=== PATIENT | female | born 1955 | race Caucasian/White ===

== ENCOUNTER → 2023-08-13 12:59 | Outpatient (REF) | payer MEDICARE, BC, SELFPAY | LOC: SDSPAT 12:59 | PROVIDERS: ATTENDING PHYSICIAN Surgery; FAMILY PHYSICIAN Family Medicine; OTHER PHYSICIAN Internal Medicine | DX: K43.9 Ventral hernia without obstruction or gangrene (principal); K42.9 Umbilical hernia without obstruction or gangrene | CPT/HCPCS: 36415; 93005 ==

== ENCOUNTER 2023-08-26 11:07 | Emergency (ER) | payer MEDICARE, BC, SELFPAY ==
[2023-08-26 11:16] VITALS: BP 141/77
[2023-08-26] MEDS: NSS 1000 IV (13:05)
[2023-08-26 13:22] LABS: % Basophils 0.3 % (0-2); % Immature Granulocytes 0.3 % (0-0.5); % Lymphocytes 4.2 % (20.5-51.1); % Monocytes 1.6 % (1.7-9.3); % Neutrophils 93.6 % (42.2-75.2); Absolute Lymphocytes 0.5 10^3/uL (1.2-3.4); Absolute Monocytes 0.2 10^3/uL (0.1-0.6); Absolute Neutrophils 10.4 10^3/uL (1.4-6.5); Hematocrit 36.6 % (37.0-47.0); Hemoglobin 12.4 g/dL (12.0-16.0); Mean Corp Hgb Conc. 33.9 g/dL (33.0-37.0); Mean Corpuscular Hgb 30.3 pg (27.0-31.0); Mean Corpuscular Volume 89.5 fL (81.0-99.0); Mean Platelet Volume 10.4 fL (7.4-10.4); Nucleated Red Blood Cells % 0 %; Platelet Count 317 10^3/uL (130-400); Red Blood Cell Count 4.09 10^6/uL (4.20-5.40); Red Cell Dist. Width 12.7 % (11.5-14.5); White Blood Cell Count 11.1 10^3/uL (4.8-10.8)
[2023-08-26 13:33] LABS: Lactic Acid 1.6 mmol/L (0.7-2.0)
--- NOTE | 2023-08-26 13:33 | ED.GENMED ---
History of Present Illness
General
Chief Complaint: Abdominal Pain
Source: patient
Time Seen by Provider: 08/26/23 12:44
Travel History
Have you had any contact with someone who has COVID-19?: No
Do you have any symptoms of coronavirus? Fever > 100 degrees, chills, cough, shortness of breath, sore throat, loss of taste or smell, muscle aches, or headache?: No
History of Present Illness
History of Present Illness:
68-year-old female with past medical history of hyperlipidemia and hiatal hernia, scheduled to undergo a hernia repair tomorrow at this facility presenting to the emergency department for evaluation of left lower quadrant abdominal pain x 12 hours
accompanied with persistent nausea and bilious emesis today prompting her to come to the ER for further evaluation. Patient notes that at time of my exam her pain seemingly subsided as well as the nausea. She did not take anything for her symptoms
prior to arrival. She states this feels very different than her hernia symptoms. She denies any known sick contacts, recent travel or recent antibiotics. Patient does note a little over a week ago she lost her sense of taste and checked herself
for COVID twice which was negative and is not sure if this has anything to do with her symptoms today. Patient has no other concerns at this time.
Past History
Past History
ED Past Medical History: Hypercholesterolemia
ED Past Surgical History: Other (Patient has a history of tubal ligation and Lasik surgery)
Social History
Tobacco: Non-smoker
Alcohol: None
Drug: None
Personal:
Living: with family
Review of Systems
Review of Systems
All Other Systems: ROS reviewed and negative except as documented in HPI and ROS
Phy Exam
Physical Exam
Physical Exam:
GENERAL: Alert , in no apparent distress
EYE: clear conjunctiva b/l
HEAD: NCAT
ENT: o/p clr, mmm.
CARDIAC: Regular rate and rhythm .
LUNGS: Clear breath sounds bilaterally, no acute respiratory distress, no wheezes/rales/rhonchi
ABDOMEN: Soft, without focal tenderness, no r/g, no cvat, umbilical hernia palpated but there is no tenderness to this area. Normoactive bowel sounds
NEUROLOGICAL: Alert and oriented
SKIN: Warm and dry, skin intact.
MUSCULOSKELETAL: No edema, well perfused.
PSYCH: Normal and appropriate interaction.
Scores
Heart Failure Risk
Heart Failure Risk Score: Not Applicable
Heart Score for Chest Pain Patients
STEMI patient?: Not applicable
Withdrawal Assessment of Alcohol
Withdrawal Assessment Completed?: Not applicable
Course
Orders/Labs/Results
Orders:
Orders
08/26/23 12:59
CT Abd/pelvis W Iv Cont Urgent
Comment:
Reason For Exam: LLQ pain,vomiting,scheduled hernia repair tomorrow
08/26/23 13:04
Complete Blood Count/With Diff Urgent
Comprehensive Metabolic Panel Urgent
Lactic Acid Q4H
Comment: CANCEL 2nd LACTIC ACID IF 1st LACTIC ACID IS LESS THAN 2
Lipase Urgent
Urinalysis Reflex To Culture Urgent
Date Specimen was Collected: 08/26/23
Time Specimen was Collected: 12:52
Urine Microscopic Reflex Cult Urgent
Urine Culture Urgent
CARMEN Source: U
Specimen Description:
Date Specimen was Collected: 08/26/23
Time Specimen was Collected: 12:52
0.9% Sodium Chloride 1000 ml [Nss] 1,000 ml IV BOLUS
Abnormal Lab Results
08/26/23
13:04
WBC 11.1 H 10^3/uL
(4.8-10.8)
RBC 4.09 L 10^6/uL
(4.20-5.40)
Hct 36.6 L %
(37.0-47.0)
Absolute Neuts (auto) 10.4 H 10^3/uL
(1.4-6.5)
Absolute Lymphs (auto) 0.5 L 10^3/uL
(1.2-3.4)
Neutrophils % 93.6 H %
(42.2-75.2)
Lymphocytes % 4.2 L %
(20.5-51.1)
Monocytes % 1.6 L %
(1.7-9.3)
Glucose 130 H mg/dl
(70-99)
AST 39 H U/L
(14-36)
ALT 39 H U/L
(0-35)
Urine Ketones 3+ A
(Negative)
Ur Occult Blood Reflex 4+ A
(Negative)
Urine Nitrite (Reflex) Positive A
(Negative)
Urine Bilirubin 1+ A
(Negative)
Leukocyte Esterase Rfl 1+ A
(Negative)
Urine RBC >100 A /HPF
(0-2)
Urine WBC (Reflex) 11-15 A /HPF
(0-5)
Urine Bacteria (Reflex) Many A
(Negative)
Urine Albumin (Reflex) 2+ A
(Neg - Trace)
08/26/23 13:04
08/26/23 13:04
Vital Signs
Initial and Last Documented VS:
Initial Vital Signs
Temp Pulse Resp BP Pulse Ox
98.1 F 79 18 141/77 100
08/26/23 11:16 08/26/23 11:16 08/26/23 11:16 08/26/23 11:16 08/26/23 11:16
Last Documented Vital Signs
Temp Pulse Resp BP Pulse Ox
98.1 F 78 18 116/64 99
08/26/23 11:16 08/26/23 15:54 08/26/23 15:54 08/26/23 15:54 08/26/23 15:54
MDM/Problems Addressed
Differential Diagnosis Includes:
Diverticulitis, diverticulosis, renal/ureteral colic, gastroenteritis, urinary tract infection
MDM/Problems Addressed:
68-year-old female present emergency department for evaluation of left lower quadrant abdominal pain as well as nausea and vomiting that began this morning. Did not take anything for symptoms. Symptoms seem to be improved at time of my exam.
Minimal tenderness on exam. Patient has a scheduled for ventral hernia and umbilical hernia repair tomorrow. There are no clinical signs for an acute incarcerated/strangulated hernia. Possible diverticulitis versus kidney stone versus UTI.
Patient declining anything for symptoms at this time. Will check labs, urine and CT imaging.
*Radiology
Radiology exam reviewed: radiology read reviewed
*Pulse Oximetry
Patient hypoxic: no
*Critical Care Note
Total Time (30-74mins, 75-104mins- exclusive of procedures): Not Applicable
Data Reviewed
Review of Other/Old Records Reveals: Other
Source: patient and records
Patient Management
Discussion with other providers: [employer] Administrator
Escalation/DeEscalation of care consider admission/obs:
Patient CT scan showed 2 small calculi in the proximal segment of the left ureter which were partially obstructing with a mild degree of hydronephrosis. Due to patient's UTI I notified urology who believes patient can be discharged home on
medications and recommends Bactrim DS twice daily x 5 days, Flomax and NSAIDs for pain. I discussed the case with general surgery as well given her scheduled hernia repair tomorrow and they recommended that this procedure be delayed until patient's
UTI is adequately treated. I notified patient to contact Dr. Wisdom's office tomorrow to notify them. Dr. Pedersen from urology will be in contact with patient for follow-up visit as well. She is aware of return precautions for any fevers,
worsening pain, persistent vomiting or any other concerns she may have.
ED Attending Note
-
Portions of this chart may have been created with voice recognition software.� Occasional wrong word or��sound alike� substitutions may have occurred due to the inherent limitations of voice recognition software.
Discharge Plan
Departure
Patient Disposition: Home (Routine Discharge)
Date of Disposition: 08/26/23
Time of Disposition: 15:45
Patient with high blood pressure during this ER visit?: Yes
Discharge Problem:
Kidney stone on left side, Acute UTI
Instructions: Kidney Stones (DC)
Prescriptions:
New
sulfamethoxazole-trimethoprim [Bactrim DS] 800-160 mg tablet
1 tab PO BID 5 Days Qty: 10 0RF
tamsulosin [Flomax] 0.4 mg capsule
0.4 mg PO DAILY Qty: 10 0RF
naproxen 500 mg tablet
500 mg PO BID PRN (Reason: Pain) Qty: 15 0RF
ondansetron 4 mg Tablet,Disintegrating
4 mg PO TIDPRN PRN (Reason: nausea/vomiting) Qty: 8 0RF
No Action
atorvastatin 20 mg Tablet
20 mg PO QPM
calcium carbonate-vitamin D3 [Calcium 500 + D (D3)] 500 mg-3.125 mcg (125 unit) Tablet
1 tab PO DAILY
Multi-Vitamin
Referrals:
Issac Pedersen MD [Active] - (Urology - Call for appointment)
Ciro Wisdom MD [Active] - (Call to reschedule surgery)
Gael Dawn MD [Family Provider] -
Interventions
Interventions:
*Risk Screen - Suicide Last Done: 08/26/23 11:16
*General Assessment Last Done: 08/26/23 11:16
*Neglect/Abuse Screening Last Done: 08/26/23 11:16
ED- Fall Risk Assessment Last Done: 08/26/23 16:00
*ED COVID-19 Vaccine History Last Done: 08/26/23 12:25
*Nursing Disposition Last Done: 08/26/23 16:00
NL-Xcwieu-Naolmszsvj Assessment Last Done: 08/26/23 12:24
Discharge Date and Time
Discharge Date/Time: 08/26/23 16:00
[2023-08-26 13:35] LABS: ALT (SGPT) 39 U/L (0-35); AST (SGOT) 39 U/L (14-36); Albumin 4.4 g/dl (3.5-5.0); Alkaline Phosphatase 118 U/L (38-126); Blood Urea Nitrogen 16 mg/dl (7-17); Calcium 9.5 mg/dl (8.4-10.2); Carbon Dioxide 24 mmol/L (22-30); Chloride 107 mmol/L (98-107); Glucose 130 mg/dl (70-99); Lipase 160 U/L (23-300); Sodium 138 mmol/L (135-145); Total Bilirubin 0.7 mg/dl (0.2-1.3); Total Protein 6.8 g/dl (6.3-8.2); eGFR > 60.00
[2023-08-26 13:58] LABS: Urine Albumin 2+ (Neg - Trace); Urine Bilirubin 1+ (Negative); Urine Character Very Cloudy (Clear); Urine Color Amber; Urine Glucose Negative (Negative); Urine Ketone 3+ (Negative); Urine Leukocyte 1+ (Negative); Urine Nitrite Positive (Negative); Urine Occult Blood 4+ (Negative); Urine Specific Gravity 1.025 (<1.030); Urine Urobilinogen 1+ (Neg - 1+)
[2023-08-26 14:34] LABS: Urine Mucus Few; Urine Red Blood Cell >100 /HPF (0-2); Urine Squamous Cell 16-20 /LPF (Few)
[2023-08-26 14:35] LABS: Urine Bacteria Many (Negative)
[2023-08-26 15:54] VITALS: BP 116/64
== END 2023-08-26 16:00 | disposition home or self-care (01) ==
LOC: EMR 11:07
PROVIDERS: Physician Assistant Medical; EMERGENCY PHYSICIAN Emergency Medicine; FAMILY PHYSICIAN Internal Medicine
DX: N20.0 Calculus of kidney (principal); N39.0 Urinary tract infection, site not specified; E78.00 Pure hypercholesterolemia, unspecified; K44.9 Diaphragmatic hernia without obstruction or gangrene; Z98.51 Tubal ligation status
CPT/HCPCS: 99284; 96360; 74177; 80053; 81003; 81015; 83605; 83690; 85025; 87086; Q9967

== ENCOUNTER → 2023-08-27 06:21 | Day surgery (SDC) | payer MEDICARE, BC, SELFPAY ==
[2023-08-13 13:21] VITALS: BMI 28.1
== END ==
LOC: SDS 06:21
PROVIDERS: ATTENDING PHYSICIAN Surgery
DX: K43.9 Ventral hernia without obstruction or gangrene (principal); Z53.8 Procedure and treatment not carried out for other reasons
CPT/HCPCS: 49591

== ENCOUNTER → 2023-09-05 07:35 | Outpatient (REF) | payer MEDICARE, BC, SELFPAY | LOC: RAD 07:35 | PROVIDERS: ATTENDING PHYSICIAN Surgery; FAMILY PHYSICIAN Internal Medicine | DX: N13.2 Hydronephrosis with renal and ureteral calculous obstruction (principal) | CPT/HCPCS: 74018; 76775 ==

== ENCOUNTER 2023-09-10 06:50 | Day surgery (SDC) | payer MEDICARE, BC, SELFPAY ==
[2023-09-10] VITALS (10 sets, daily range): BP systolic 106–137; BP diastolic 58–115; BMI 27.2
[2023-09-10] MEDS: NORMOSOL-R 1000 IV (10:59)
[2023-09-10] MEDS: TYLENOL 1000 MG PO (10:59)
--- NOTE | 2023-09-10 14:58 | W.IMMPOSTOP ---
Surgical Immed Post Op Note
-
Primary Surgeon: Alyx
Assisting: Manny PHILIP
Pre-op Diagnosis: Incarcerated epigastric and umbilical hernias
Post-op Diagnosis: Same
Procedure Performed: Robot assisted laparoscopic repair of incarcerated epigastric and umbilical hernias
Anesthesia Type: GETA + TAP block
Specimen / Cultures: None
Estimated Blood Loss:5cc
Complications: None immediate
Operative Findings: 1cm x 1cm umbilical hernia - 6cm superior to this an epigastric defect 2cm x 1cm with incarcerated fat, [Total hernia size = 8cm]; 15cm x 11cm bard soft mesh
--- NOTE | 2023-09-10 15:00 | OR.RPT ---
Operative Report
Operative Report
Primary Surgeon: Alyx
Assisting: Manny PHILIP
Pre-op Diagnosis: Incarcerated epigastric and umbilical hernias
Post-op Diagnosis: Same
Procedure Performed: Robot assisted laparoscopic repair of incarcerated epigastric and umbilical hernias
Anesthesia Type: GETA + TAP block
Specimen / Cultures: None
Estimated Blood Loss:5cc
Complications: None immediate
Operative Findings: 1cm x 1cm umbilical hernia - 6cm superior to this an epigastric defect 2cm x 1cm with incarcerated fat, [Total hernia size = 8cm]; 15cm x 11cm bard soft mesh
Date of Surgery:� 09/10/23
Indications:� This 68F developed�a symptomatic incarcerated epigastric hernia. On imaging, an umbilical defect was also identified. Repair was thus indicated and laparoscopic approach was elected, she asked that we repair both defects today.
Description of procedure:� The patient was taken to the operating room and the correct site of surgery was verified. General anesthesia was induced and the patient was placed supine on the operating table with arms tucked.� The patient�s abdomen was
prepped and draped in standard sterile fashion. A time-out was completed verifying correct patient, procedure, site, positioning, and implants and special equipment prior to beginning this procedure. A stab incision was made in the left upper
quadrant, a Veress needle was inserted and proper position was confirmed by aspiration and saline drop test. Following this, pneumoperitoneum was created with insufflation of carbon dioxide to 12 mmHg. Then a 8mm robotic trocar was inserted at the
left anterior axillary line at the level of the umbilicus. A laparoscope was inserted and the area of initial trocar entry and Veress needle placement were both inspected and free of trauma. Two 8mm trocars were then placed a hand's breadth above
and below the initial trocar under direct visualization. The peritoneum was incised at the falciform ligament and a flap was developed in transverse and caudad directions using blunt and sharp dissection. The umbilical defect was identified and
measured 1cm x 1cm. The epigastric defect was identified and measured 2cm x 1cm. Fatty contents were manually reduced from the defect.� The defects were closed with 0 PDS stratafix suture.� An 11cm x 15cm bard soft mesh was passed through a trocar.
The mesh was moved into position to lay flat against the abdominal wall, centered longitudinally on the defect. The mesh was secured into place using 2-0 vicryl suture under the defect and at all four corners as well as fpc along each side.� A
2-0 monocryl stratafix was used to close the flap. A large central flap rent was closed with 2-0 monocryl stratafix suture. A 14g angiocath was used to decompress the preperitoneal space revealing good seal and mesh in good position without folding
or curling. A transversus abdominis plane block was performed under laparoscopic vision using decadron/marcaine. After ensuring adequate hemostasis, the trocars were removed and the pneumoperitoneum allowed to escape. The trocar incisions were
closed at the skin level using 4-0 monocryl and topical skin adhesive. Abdominal binder was placed. The patient tolerated the procedure well and was taken to the postanesthesia care unit in stable condition.
[2023-09-10] MEDS: DILAUDID 0.25 MG IV ×2 (15:10→15:26)
== END 2023-09-10 17:30 | disposition home or self-care (01) ==
LOC: SDS 06:50
PROVIDERS: ATTENDING PHYSICIAN Surgery
DX: K43.6 Other and unspecified ventral hernia with obstruction, without gangrene (principal)
CPT/HCPCS: 49594; C1781

== ENCOUNTER → 2023-09-25 11:00 | Outpatient (REF) | payer MEDICARE, BC, SELFPAY ==
[2023-09-25 12:40] LABS: Urine Albumin Negative (Neg - Trace); Urine Bilirubin Negative (Negative); Urine Character Clear (Clear); Urine Color Yellow; Urine Glucose Negative (Negative); Urine Ketone Negative (Negative); Urine Leukocyte Trace (Negative); Urine Nitrite Negative (Negative); Urine Occult Blood Negative (Negative); Urine Urobilinogen Negative (Neg - 1+)
[2023-09-25 13:04] LABS: Urine Red Blood Cell 0-2 /HPF (0-2)
[2023-09-25 13:05] LABS: Urine Calcium Oxalate Crystals Present
== END ==
LOC: REG 11:00
PROVIDERS: ATTENDING PHYSICIAN Surgery; FAMILY PHYSICIAN Internal Medicine
DX: N39.0 Urinary tract infection, site not specified (principal); N13.2 Hydronephrosis with renal and ureteral calculous obstruction
CPT/HCPCS: 74018; 81003; 81015; 87086

== ENCOUNTER → 2023-11-26 10:11 | Outpatient (REF) | payer MEDICARE, BC, SELFPAY ==
[2023-11-26 10:48] LABS: Urine Albumin Trace (Neg - Trace); Urine Bilirubin Negative (Negative); Urine Character Clear (Clear); Urine Color Yellow; Urine Glucose Negative (Negative); Urine Ketone Negative (Negative); Urine Leukocyte Negative (Negative); Urine Nitrite Negative (Negative); Urine Occult Blood 4+ (Negative); Urine Specific Gravity 1.025 (<1.030); Urine Urobilinogen Negative (Neg - 1+)
[2023-11-26 13:30] LABS: Urine Red Blood Cell >100 /HPF (0-2); Urine Squamous Cell 0-2 /LPF (Few); Urine Urothelial Cell 26-30 /LPF (FEW)
[2023-11-26 13:31] LABS: Urine White Cell 0-2 /HPF (0-5)
== END ==
LOC: REG 10:11
PROVIDERS: ATTENDING PHYSICIAN Surgery; FAMILY PHYSICIAN Internal Medicine
DX: N39.0 Urinary tract infection, site not specified (principal)
CPT/HCPCS: 81003; 81015; 87086

== ENCOUNTER → 2023-11-28 09:52 | Outpatient (REF) | payer MEDICARE, BC, SELFPAY | LOC: HWRAD 09:52 | PROVIDERS: ATTENDING PHYSICIAN Surgery; FAMILY PHYSICIAN Internal Medicine | DX: N13.2 Hydronephrosis with renal and ureteral calculous obstruction (principal) | CPT/HCPCS: 74176 ==

== ENCOUNTER 2023-12-07 06:16 | Day surgery (SDC) | payer MEDICARE, BC, SELFPAY ==
[2023-12-05 07:13] VITALS: BMI 24.6
[2023-12-07] VITALS (7 sets, daily range): BP systolic 103–128; BP diastolic 62–80
[2023-12-07] MEDS: NORMOSOL-R 1000 IV (13:29)
[2023-12-07] MEDS: DETROL LA 4 MG PO (15:24)
[2023-12-07] MEDS: Pyridium 200 MG PO (15:24)
[2023-12-11 23:16] LABS: Stone Analysis Mass 8 mg
== END 2023-12-07 16:10 | disposition home or self-care (01) ==
LOC: SDS 06:16
PROVIDERS: ATTENDING PHYSICIAN Surgery
DX: N20.1 Calculus of ureter (principal)
CPT/HCPCS: 52353; 74018; 76000; 82365; C1769

== ENCOUNTER → 2023-12-13 12:25 | Outpatient (REF) | payer MEDICARE, BC, SELFPAY ==
[2023-12-13 13:28] LABS: Urine Albumin Negative (Neg - Trace); Urine Bilirubin Negative (Negative); Urine Character Clear (Clear); Urine Color Yellow; Urine Glucose Negative (Negative); Urine Ketone Negative (Negative); Urine Leukocyte Negative (Negative); Urine Nitrite Negative (Negative); Urine Occult Blood 1+ (Negative); Urine Urobilinogen Negative (Neg - 1+); Urine pH 6.5 (5.0-9.0)
[2023-12-13 14:11] LABS: Urine Mucus Moderate
[2023-12-13 14:12] LABS: Urine Bacteria Few (Negative)
== END ==
LOC: REG 12:25
PROVIDERS: ATTENDING PHYSICIAN Surgery; FAMILY PHYSICIAN Internal Medicine
DX: N39.0 Urinary tract infection, site not specified (principal)
CPT/HCPCS: 81003; 81015; 87086

== ENCOUNTER → 2024-04-29 09:13 | Outpatient (REF) | payer MEDICARE, BC, SELFPAY | LOC: RAD 09:13 | PROVIDERS: ATTENDING PHYSICIAN Surgery; FAMILY PHYSICIAN Internal Medicine | DX: N20.0 Calculus of kidney (principal) | CPT/HCPCS: 74018 ==

== ENCOUNTER → 2024-05-09 14:12 | Outpatient (REF) | payer MEDICARE, BC, SELFPAY | LOC: HWRAD 14:12 | PROVIDERS: ATTENDING PHYSICIAN Surgery; FAMILY PHYSICIAN Internal Medicine | DX: N13.2 Hydronephrosis with renal and ureteral calculous obstruction (principal) | CPT/HCPCS: 74176 ==

== ENCOUNTER 2024-09-01 06:23 | Day surgery (SDC) | payer OTHER, SELFPAY | END 2024-09-01 12:08 | disposition home or self-care (01) | LOC: GI 06:23 | PROVIDERS: ATTENDING PHYSICIAN Internal Medicine Gastroenterology | DX: Z12.11 Encounter for screening for malignant neoplasm of colon (principal); Z80.0 Family history of malignant neoplasm of digestive organs; K64.0 First degree hemorrhoids; D12.5 Benign neoplasm of sigmoid colon; D12.3 Benign neoplasm of transverse colon; D36.10 Benign neoplasm of peripheral nerves and autonomic nervous system, unspecified | CPT/HCPCS: 45385; 45380; 88305 ==

== ENCOUNTER → 2025-04-23 14:36 | Outpatient (REF) | payer OTHER, SELFPAY | LOC: HWRAD 14:36 | PROVIDERS: ATTENDING PHYSICIAN Surgery; FAMILY PHYSICIAN Internal Medicine | DX: N20.0 Calculus of kidney (principal) | CPT/HCPCS: 76775 ==